=== PATIENT | female | born 1965 | race Hispanic/Latino ===

== ENCOUNTER → 2019-04-04 | Outpatient (CLI) | payer BC | END | disposition home or self-care (01) | LOC: RAH 09:40 | PROVIDERS: ATTEND Internal Medicine | DX: M19.072 Primary osteoarthritis, left ankle and foot (principal) | CPT/HCPCS: 73630 ==

== ENCOUNTER → 2024-04-05 | Outpatient (CLI) | payer OTHER | END | disposition home or self-care (01) | LOC: RAH 14:53 | PROVIDERS: ATTEND Internal Medicine Cardiovascular Disease | DX: Z13.6 Encounter for screening for cardiovascular disorders (principal) | CPT/HCPCS: 75571 ==